=== PATIENT | male | born 1975 | race Asian ===

== ENCOUNTER 2019-03-01 00:34 | Emergency (ER) | payer OTHER ==
--- NOTE | 2019-03-01 02:05 | PDOC ---
History of Present Illness - General Chief Complaint: Nausea Stated Complaint: ELEVATED BLOOD HEAD PAIN Time Seen by Provider: 03/01/19 01:59 - History of Present Illness Initial Comments: 03/01/19 02:04 43 yo M with h/o GERD who p/w epigastria pain. Patient reports 2 days of severe , intermittent epiagstric burning, radiating to throat. States that he experienced sharp, burning, epigastria pain this evening following PO ingestion of "Halaal." Endorses 1 episode of NBNB vomiting (02/27/19). Pain not improved with Omeprazole. Pain non positional, non pleuritic, non radiating. Patient denies DOVER, vision change, palpitations, cough, wheezing, orthopena, PND , leg swelling/pain, F,C, CP, SOB, urinary complaints, hematuria, BPR, diarrhea , constipation, lightheadedness, weakness, sensory changes. PMHx: as noted above Surgical: Denies h/o abdominal surgery. Patient reports gastritis on endoscopy x 4 years prior. Does not f/w GI ROS: as noted SHx: tobacco use intermittently 11 years. Denies Etoh, IVDA. Allergies: NKDA Past History - Past Medical History Allergies/Adverse Reactions: Allergies Allergy/AdvReac Type Severity Reaction Status Date / Time No Known Allergies Allergy Verified 03/02/16 19:52 Home Medications: Ambulatory Orders Acetaminophen [Tylenol] 650 mg PO Q6H PRN 03/02/16 Ibuprofen [Motrin -] 800 mg PO Q6H #30 tablet 03/02/16 Ranitidine [Zantac -] 150 mg PO BID #30 tablet MDD 2 tab 03/01/19 COPD: No - Immunization History Immunization Up to Date: No - Suicide/Smoking/Psychosocial Hx Smoking History: Current every day smoker Number of Cigarettes Smoked Daily: 2 Information on smoking cessation initiated: No Hx Alcohol Use: No Drug/Substance Use Hx: No Review of Systems - Review of Systems Comments:: 03/01/19 02:04 GENERAL/CONSTITUTIONAL: No fever or chills. No weakness. HEAD, EYES, EARS, NOSE AND THROAT: No change in vision. No ear pain or discharge. No sore throat. CARDIOVASCULAR: No chest pain or shortness of breath RESPIRATORY: No cough, wheezing, or hemoptysis. GASTROINTESTINAL: + Abdominal epigastria pain. +nausea. No vomiting, diarrhea or constipation. GENITOURINARY: No dysuria, frequency, or change in urination. MUSCULOSKELETAL: No joint or muscle swelling or pain. No neck or back pain. SKIN: No rash NEUROLOGIC: No headache, vertigo, loss of consciousness, or change in strength/ sensation. ENDOCRINE: No increased thirst. No abnormal weight change HEMATOLOGIC/LYMPHATIC: No anemia, easy bleeding, or history of blood clots. ALLERGIC *Physical Exam - Vital Signs Last Vital Signs Temp Pulse Resp BP Pulse Ox 98.4 F 92 H 20 143/96 100 03/01/19 00:45 03/01/19 00:45 03/01/19 00:45 03/01/19 00:45 03/01/19 00:45 - Physical Exam Comments: 03/01/19 02:05 GENERAL: Awake, alert, and fully oriented, in no acute distress HEAD: No signs of trauma, normocephalic, atraumatic EYES: PERRLA, EOMI, sclera anicteric, conjunctiva clear ENT: Auricles normal inspection, hearing grossly normal, nares patent, oropharynx clear without exudates. Moist mucosa NECK: Normal ROM, supple, no lymphadenopathy, JVD, or masses LUNGS: No distress, speaks full sentences, clear to auscultation bilaterally HEART: Regular rate and rhythm, normal S1 and S2, no murmurs, rubs or gallops, peripheral pulses normal and equal bilaterally. ABDOMEN: Epigastric ttp. Soft,, NDS, normoactive bowel sounds. No guarding, no rebound. No masses. Neg CVA ttp. EXTREMITIES : Normal inspection, Normal range of motion, no edema. No clubbing or cyanosis. NEUROLOGICAL: Cranial nerves II through XII grossly intact. Normal speech, normal gait, no focal sensorimotor deficits SKIN: Warm, Dry, normal turgor, no rashes or lesions noted ED Treatment Course - LABORATORY CBC & Chemistry Diagram: 03/01/19 02:20 03/01/19 02:20 Medical Decision Making - Medical Decision Making 03/01/19 02:39 43 yo M with h/o GERD who p/w epigastria pain. Vitals wnl, AF, A&Ox3. + Epigastric ttp. Will consider esophagitis, gastritis, PUD, pancreatitis, biliary dz. enteritis, colitis. Will provide analgeisc control, and reassess. ED Course: 03/01/19 04:10 CXR: Unremarkable CBC,CMP: Unremarkable Pt. Pain improved Advised to f/u GI Zantac sent to pharmacy *DC/Admit/Observation/Transfer Diagnosis at time of Disposition: Epigastric pain - Discharge Dispostion Condition at time of disposition: Stable Decision to Admit order: No - Prescriptions Prescriptions: Ranitidine [Zantac -] 150 mg PO BID #30 tablet MDD 2 tab - Referrals Referrals: Breana Álvarez MD [Primary Care Provider] - Briana Jameson MD [Staff Physician] - - Patient Instructions Printed Discharge Instructions: DI for Epigastric Pain Additional Instructions: Please return to the emergency department with any new or worsening symptoms or concerns. 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 Can take Ranitidine twice a day for symptom relief as needed. - Post Discharge Activity
[2019-03-01] MEDS ORDERED: ONDANSETRON 4 MG/2 ML VIAL IVPUSH ONE (02:19)
[2019-03-01] MEDS ORDERED: MAG HYDROX/AL HYDROX/SIMETH -MYLANTA- ORAL SUSPENSION PO ONE (02:19)
[2019-03-01] MEDS ORDERED: SODIUM CHLORIDE 1,000 ML IV STA (02:19)
[2019-03-01] MEDS ORDERED: SUCRALFATE 1 GM/10 ML UNIT DOSE CUPS PO ONE (02:19)
[2019-03-01] MEDS ORDERED: FAMOTIDINE 20 MG/50 ML IVPB 20 MG/50 ML MG IVPB ONE ×2 (02:19→02:32)
[2019-03-01] MEDS ORDERED: ONDANSETRON 4 MG/2 ML VIAL ONE (02:31)
[2019-03-01] MEDS ORDERED: MAG HYDROX/AL HYDROX/SIMETH 30 ML UNIT-DOSE CUP ONE (02:31)
[2019-03-01 02:40] LABS: BASO % 0.3 % (0-2.0); EOS % 0.9 % (0-4.5); HEMATOCRIT 42.7 % (35.4-49); HEMOGLOBIN 14.8 GM/dL (11.7-16.9); LYMPH % 20.8 % (8-40); MCH 31.5 pg (25.7-33.7); MCHC 34.7 g/dl (32.0-35.9); MEAN CELL VOLUME 90.6 fl (80-96); MEAN PLT VOLUME 7.9 fl (7.5-11.1); MONO % 8.7 % (3.8-10.2); NEUT % 69.3 % (42.8-82.8); PLATELET COUNT 228 K/MM3 (134-434); RBC 4.71 M/mm3 (4.00-5.60); RDW 12.6 % (11.9-15.9)
[2019-03-01] MEDS ORDERED: SUCRALFATE 1 GM TABLET (FP) ONE (02:43)
[2019-03-01] MEDS ORDERED: SUCRALFATE 1 GM TABLET (FP) PO ONE (02:43)
[2019-03-01 03:06] LABS: ALBUMIN 4.2 g/dl (3.4-5.0); BILIRUBIN,TOTAL 0.2 mg/dL (0.2-1); BLOOD UREA NITROGEN 15.8 mg/dL (7-18); CALCIUM 8.6 mg/dL (8.5-10.1); CREATININE 0.8 mg/dL (0.55-1.3); TOT PROT 7.4 g/dl (6.4-8.2)
[2019-03-01 03:14] VITALS: BP 143/96; PULSE 92; TEMP 98.4
--- NOTE | 2019-03-01 08:37 | EKG ---
Test Reason : Blood Pressure : / mmHG Vent. Rate : 068 BPM Atrial Rate : 068 BPM P-R Int : 142 ms QRS Dur : 078 ms QT Int : 382 ms P-R-T Axes : 074 052 066 degrees QTc Int : 406 ms SINUS RHYTHM WITH PREMATURE ATRIAL COMPLEXES OTHERWISE NORMAL ECG WHEN COMPARED WITH ECG OF 15-SEP-2006 21:37, PREMATURE ATRIAL COMPLEXES ARE NOW PRESENT Confirmed by MAXX LEON, RACHELLE ([id number]) on 03/01/2019 8:37:48 AM Referred By: Confirmed By:RACHELLE LILLY MD
--- NOTE | 2019-03-01 22:47 | PDOC ---
Documentation entered by Mimi De La Paz SCRIBE, acting as scribe for Sally Toro MD. Sally Toro MD: This documentation has been prepared by the avrindibBrain gongora Lincy, SCRIBE, under my direction and personally reviewed by me in its entirety. I confirm that the documentation accurately reflects all work, treatment, procedures, and medical decision making performed by me. Attending Attestation - Resident Resident Name: Husam Henson - ED Attending Attestation I have performed the following: I have examined & evaluated the patient, The case was reviewed & discussed with the resident, I agree w/resident's findings & plan - HPI HPI: 03/01/19 02:56 The patient is a 43 year old male with a past medical history significant for GERD presents to the emergency department with epigastric pain. The patient presents with 2 days of intermittent, epigastric pain that's sharp and burning in quality, radiating up to the chest. The patient reports the pain presented after eating halal food. The patient reports taking omeprazole, without relief. Denies fever or chills. - Physicial Exam PE: 03/01/19 02:56 GENERAL: Awake, alert and oriented. The patient is in no acute distress. ENT: Ears normal, nares patent, oropharynx clear without exudates. Moist mucous membranes. NECK: Normal range of motion, supple, no nuchal rigidity LUNGS: Breath sounds equal, clear to auscultation bilaterally. No wheezes, and no crackles. HEART: Regular rate and rhythm, normal S1 and S2 without murmur, rub or gallop. ABDOMEN: Soft, nontender, normoactive bowel sounds. No guarding, no rebound. No masses palpable. EXTREMITIES: Normal range of motion, no edema. NEUROLOGICAL: Answering all questions. Cranial nerves II through XII grossly intact. Normal speech. No focal neurological deficits. SKIN: Warm, Dry, normal turgor, no rashes or lesions noted. - Medical Decision Making 03/01/19 22:46 Exam normal; labs normal; cardiac enzyme normal. Meds goven and pt feels better.
== END 2019-03-01 04:25 | disposition home or self-care (01) ==
LOC: JER 00:34
PROC: 3E0337Z Introduction of Electrolytic and Water Balance Substance into Peripheral Vein, Percutaneous Approach (ICD-10-PCS; principal; 2019-03-01)
PROC: 3E033GC Introduction of Other Therapeutic Substance into Peripheral Vein, Percutaneous Approach (ICD-10-PCS; 2019-03-01)
PROC: 3E033GC Introduction of Other Therapeutic Substance into Peripheral Vein, Percutaneous Approach (ICD-10-PCS; 2019-03-01)
DX: K21.9 Gastro-esophageal reflux disease without esophagitis (principal); R10.13 Epigastric pain
CPT/HCPCS: 36415; 71046-TC-FY; 80053; 83690; 85025; 93005; 93010; 96361; 96365; 96375; 99282-25; J7030

== ENCOUNTER 2019-08-06 17:19 | Emergency (ER) | payer OTHER ==
--- NOTE | 2019-08-06 17:25 | PDOC ---
Rapid Medical Evaluation Chief Complaint: Pain, Acute Time Seen by Provider: 08/06/19 17:22 Medical Evaluation: Allergies Allergy/AdvReac Type Severity Reaction Status Date / Time No Known Allergies Allergy Verified 03/02/16 19:52 08/06/19 17:22 I have performed a brief in-person evaluation of this patient. The patient presents with a chief complaint of:abd pain x 3 days, + nausea Pertinent physical exam findings: soft no rebound I have ordered the following: UA The patient will proceed to the ED for further evaluation. Discharge Disposition - Diagnosis Abdominal pain - Discharge Dispostion Condition at time of disposition: Stable - Referrals - Patient Instructions - Post Discharge Activity
[2019-08-06 18:03] LABS: PH,URINE 6.5 (5.0-8.0); URINE APPEARANCE CLEAR; URINE BILIRUBIN NEGATIVE (NEGATIVE); URINE COLOR YELLOW; URINE GLUCOSE (UA) NEGATIVE (NEGATIVE); URINE KETONE NEGATIVE (NEGATIVE); URINE LEUK ESTERASE NEGATIVE (NEGATIVE); URINE NITRITE NEGATIVE (NEGATIVE); URINE PROTEIN NEGATIVE (NEGATIVE); URINE UROBILINOGEN 0.2 mg/dL (0.2-1.0)
--- NOTE | 2019-08-06 18:08 | PDOC ---
History of Present Illness - General Chief Complaint: Pain, Acute Stated Complaint: ABD PAIN Time Seen by Provider: 08/06/19 17:22 - History of Present Illness Initial Comments: 08/06/19 18:00 CHIEF COMPLAINT: abdominal pain HISTORY OF PRESENT ILLNESS: 44 yo M with no PMH presents to ED with abdominal pain x 3 days that he believes has been worsened by cold weather. He states that he has been unable to sleep the past two nights secondary to pain. Denies fever, vomiting, diarrhea. Patient denies any unusual foods or new medications. Last BM 3 hours ago and was normal. Patient denies any pain with urination, hematuria. No recent travel or sick contacts. PAST MEDICAL HISTORY: Denies past medical history FAMILY HISTORY: Denies SOCIAL HISTORY: Quit smoking 4 months ago. 9 pack year smoking history. Denies alcohol, illicit drug use. SURGICAL HISTORY: Denies ALLERGIES: No known drug allergies REVIEW OF SYSTEMS General/Constitutional: Denies fever or chills. Denies weakness, weight change. HEENT: Denies change in vision. Denies ear pain or discharge. Denies sore throat. Cardiovascular: Denies chest pain or shortness of breath. Respiratory: Denies cough, wheezing, or hemoptysis. Gastrointestinal: Nausea, abdominal pain x 3 days. Denies vomiting, diarrhea or constipation. Denies rectal bleeding. Genitourinary: Denies dysuria, frequency, or change in urination. Musculoskeletal: Denies joint or muscle swelling or pain. Denies neck or back pain. Skin and breasts: Denies rash or easy bruising. Neurologic: Denies headache, vertigo, loss of consciousness, or loss of sensation. Psychiatric: Denies depression or anxiety. PHYSICAL EXAM General Appearance: Well-appearing, appropriately dressed. No apparent distress , no intoxication. HEENT: EOMI, PERRLA, normal ENT inspection, normal voice, TMs normal, pharynx normal. No conjunctival pallor. No photophobia, scleral icterus. Neck: Supple. Trachea midline. No tenderness, rigidity, carotid bruit, stridor , lymphadenopathy, or thyromegaly. Respiratory/Chest: Lungs CTAB. No shortness of breath, chest tenderness, respiratory distress, accessory muscle use. No crackles, rales, rhonchi, stridor , wheezing, dullness Cardiovascular: RRR. S1, S2. No JVD, murmur, bradycardia, tachycardia. Vascular Pulses: Dorsalis-Pedis (R): 2+, Dorsalis-Pedis (L): 2+ Gastrointestinal/Abdominal: Mild tenderness to epigastrum and RLQ. Abdomen soft , non-distended. No organomegaly, pulsatile mass, guarding, hernia, hepatomegaly, splenomegaly. Lymphatic: No adenopathy, tenderness. Musculoskeletal/Extremities: Normal inspection. FROM of all extremities, normal capillary refill. Pelvis Stable. No CVA tenderness. No tenderness to extremities, pedal edema, swelling, erythema or deformity. Integumentary: Appropriate color, dry, warm. No cyanosis, erythema, jaundice or rash Neurologic: deputy assessor II-XII intact. Fully oriented, alert. Appropriate mood/affect. Motor strength 5/5. No appreciable EOM palsy, facial droop or sensory deficit. Of breath Past History - Past Medical History Allergies/Adverse Reactions: Allergies Allergy/AdvReac Type Severity Reaction Status Date / Time No Known Allergies Allergy Verified 08/06/19 17:24 Home Medications: Ambulatory Orders NK [No Known Home Medication] 08/06/19 COPD: No - Immunization History Immunization Up to Date: No - Psycho Social/Smoking Cessation Hx Smoking History: Former smoker Have you smoked in the past 12 months: No Number of Cigarettes Smoked Daily: 2 Information on smoking cessation initiated: No Hx Alcohol Use: No Drug/Substance Use Hx: No *Physical Exam - Vital Signs Last Vital Signs Temp Pulse Resp BP Pulse Ox 97.6 F 80 18 133/90 99 08/06/19 17:20 08/06/19 17:20 08/06/19 17:20 08/06/19 17:20 08/06/19 17:20 ED Treatment Course - LABORATORY CBC & Chemistry Diagram: 08/06/19 18:17 08/06/19 18:17 Medical Decision Making - Medical Decision Making 08/06/19 19:27 44 yo M with no PMH presents to ED with abdominal pain, worsened by cold weather -labs -pepcid/protonix/maalox Labs unremarkable. Patient reassessed after administration of meds, states he is feeling much better at this time. Advised patient to take medication as prescribed and follow up with PCP and GI. Advised patient of signs and symptoms for return to ED. Patient verbalized understanding and agrees to plan. Discharge - Discharge Information Problems reviewed: Yes Clinical Impression/Diagnosis: GERD (gastroesophageal reflux disease) Qualifiers: Esophagitis presence: esophagitis presence not specified Qualified Code(s): K21.9 - Gastro-esophageal reflux disease without esophagitis Condition: Stable Disposition: HOME - Admission No - Follow up/Referral Referrals: Breana Álvarez MD [Primary Care Provider] - Briana Jameson MD [Staff Physician] - - Patient Discharge Instructions Patient Printed Discharge Instructions: DI for Gastroesophageal Reflux Disease (GERD) - Post Discharge Activity
[2019-08-06] MEDS ORDERED: MAG HYDROX/AL HYDROX/SIMETH -MYLANTA- ORAL SUSPENSION PO ONE (18:12)
[2019-08-06] MEDS ORDERED: FAMOTIDINE 20 MG/50 ML IVPB 20 MG/50 ML MG IVPB ONE ×2 (18:12→18:22)
[2019-08-06] MEDS ORDERED: PANTOPRAZOLE SODIUM 40 MG VIAL IVPUSH ONE (18:12)
[2019-08-06] MEDS ORDERED: MAG HYDROX/AL HYDROX/SIMETH 30 ML UNIT-DOSE CUP ONE (18:22)
[2019-08-06] MEDS ORDERED: PANTOPRAZOLE SODIUM 40 MG VIAL ONE (18:22)
[2019-08-06 18:33] LABS: BASO % 0.3 % (0-2.0); EOS % 0.6 % (0-4.5); HEMATOCRIT 43.3 % (35.4-49); HEMOGLOBIN 14.8 GM/dL (11.7-16.9); LYMPH % 22.1 % (8-40); MCH 31.1 pg (25.7-33.7); MCHC 34.2 g/dl (32.0-35.9); MEAN CELL VOLUME 90.9 fl (80-96); MEAN PLT VOLUME 8.2 fl (7.5-11.1); MONO % 8.7 % (3.8-10.2); NEUT % 68.3 % (42.8-82.8); PLATELET COUNT 215 K/MM3 (134-434); RBC 4.76 M/mm3 (4.00-5.60); RDW 12.7 % (11.9-15.9); WHITE BLOOD COUNT 6.8 K/mm3 (4.0-10.0)
[2019-08-06 18:44] VITALS: BP 127/78; PULSE 84; TEMP 97.8
[2019-08-06 19:01] LABS: ALBUMIN 4.2 g/dl (3.4-5.0); BILIRUBIN,TOTAL 0.4 mg/dL (0.2-1); BLOOD UREA NITROGEN 14.5 mg/dL (7-18); CALCIUM 9.3 mg/dL (8.5-10.1); CREATININE 0.7 mg/dL (0.55-1.3); POTASSIUM 3.9 mmol/L (3.5-5.1); TOT PROT 7.5 g/dl (6.4-8.2)
== END 2019-08-06 19:44 | disposition home or self-care (01) ==
LOC: JER 17:19
PROC: 3E033GC Introduction of Other Therapeutic Substance into Peripheral Vein, Percutaneous Approach (ICD-10-PCS; principal; 2019-08-06)
PROC: 3E033GC Introduction of Other Therapeutic Substance into Peripheral Vein, Percutaneous Approach (ICD-10-PCS; 2019-08-06)
DX: K21.9 Gastro-esophageal reflux disease without esophagitis (principal); Z87.891 Personal history of nicotine dependence
CPT/HCPCS: 36415; 80053; 81003; 83690; 85025; 99283-25

== ENCOUNTER 2023-09-16 15:26 | Emergency (ER) | payer OTHER ==
[2023-09-16 15:35] VITALS: BP 177/97; PULSE 81; RESP 18; TEMP 98.3; BMI 23.6
[2023-09-16 17:23] LABS: BASO % 0.5 % (0-2.0); EOS % 0.5 % (0-4.5); HEMATOCRIT 43.2 % (35.4-49); HEMOGLOBIN 14.8 GM/dL (11.7-16.9); LYMPH % 18.3 % (8-40); MCH 30.8 pg (25.7-33.7); MCHC 34.4 g/dl (32.0-35.9); MEAN CELL VOLUME 89.7 fl (80-96); MEAN PLT VOLUME 7.7 fl (7.5-11.1); MONO % 8.9 % (3.8-10.2); NEUT % 71.8 % (42.8-82.8); PLATELET COUNT 252 10^3/uL (134-434); RBC 4.82 M/mm3 (4.00-5.60); WHITE BLOOD COUNT 7.5 K/mm3 (4.0-10.0)
[2023-09-16 17:44] LABS: POTASSIUM 4.2 mmol/L (3.5-5.1)
[2023-09-16 17:46] LABS: BLOOD UREA NITROGEN 12.7 mg/dL (7-18); CALCIUM 9.3 mg/dL (8.5-10.1)
[2023-09-16 17:47] LABS: ALBUMIN 4.4 g/dl (3.4-5.0)
[2023-09-16 17:50] LABS: CREATININE 0.8 mg/dL (0.55-1.3)
[2023-09-16 17:51] LABS: BILIRUBIN,TOTAL 0.4 mg/dL (0.2-1); TOT PROT 7.7 g/dl (6.4-8.2)
== END 2023-09-16 21:23 | disposition home or self-care (01) ==
LOC: JER 15:26
DX: K40.90 Unilateral inguinal hernia, without obstruction or gangrene, not specified as recurrent (principal); R10.31 Right lower quadrant pain
CPT/HCPCS: 36415; 74177-TC; 80053; 83605; 85025; 93005; 93010; 99285-25; Q9967

== ENCOUNTER 2023-11-04 05:18 | Day surgery (SDC) | payer OTHER ==
[2023-10-24 13:50] VITALS: BMI 23.6
[2023-11-04] MEDS ORDERED: BUPIVACAINE HCL/PF 0.25% (2.5MG/ML) 10 ML VIAL ONE (10:49)
[2023-11-04] MEDS ORDERED: PROPOFOL 20 ML ONE (11:01)
[2023-11-04] MEDS ORDERED: MIDAZOLAM HCL 2 MG/2 ML SINGLE DOSE VIAL ONE (11:01)
[2023-11-04] MEDS ORDERED: ROCURONIUM BROMIDE 50 MG/5 ML SYRINGE ONE (11:01)
[2023-11-04] MEDS ORDERED: FENTANYL CITRATE/PF 50 MCG/ML VIAL ONE ×5 (11:01→14:54)
[2023-11-04] MEDS ORDERED: ceFAZolin SODIUM 1 GM VIAL ONE (11:02)
[2023-11-04] MEDS ORDERED: LIDOCAINE HCL/PF 2% SDV 5ML VIAL ONE (11:02)
[2023-11-04] MEDS ORDERED: SODIUM CHLORIDE 0.9% P/F 10 ML VIAL IJ ONE (11:02)
[2023-11-04] MEDS: ceFAZolin SODIUM 1 GM VIAL IVPB ONE (11:18)
[2023-11-04] MEDS: BUPIVACAINE HCL/PF 0.25% (2.5MG/ML) 10 ML VIAL IJ ONE ×2 (11:19→11:46)
[2023-11-04] MEDS ORDERED: DEXAMETHASONE SOD PHOSPHATE 4 MG/1 ML VIAL ONE (11:34)
[2023-11-04] MEDS ORDERED: ONDANSETRON 4 MG/2 ML VIAL ONE (11:34)
[2023-11-04] MEDS ORDERED: METOCLOPRAMIDE HCL INJECTION 10 MG/2 ML VIAL ONE (11:34)
[2023-11-04] MEDS ORDERED: KETOROLAC TROMETHAMINE 30 MG/1 ML VIAL ONE (13:11)
[2023-11-04] MEDS ORDERED: SUGAMMADEX SODIUM 200 MG/2 ML VIAL ONE (13:12)
[2023-11-04] MEDS ORDERED: ONDANSETRON 4 MG/2 ML VIAL IVPUSH PRN (13:29)
[2023-11-04] MEDS ORDERED: PROMETHAZINE HCL 25 MG/1 ML VIAL IVPB PRN (13:29)
[2023-11-04] MEDS ORDERED: LACTATED RINGERS SOLUTION 1,000 ML IV SCH (13:30)
[2023-11-04] MEDS ORDERED: oxyCODONE HCL 5 MG TABLET ONE (16:15)
[2023-11-04] MEDS: oxyCODONE HCL 5 MG TABLET PO PRN (16:15)
[2023-11-04 17:49] VITALS: PULSE 62; RESP 18
[2023-11-04 17:57] VITALS: BP 134/75; TEMP 97.7
== END 2023-11-04 16:55 | disposition home or self-care (01) ==
LOC: JASU-SURG 05:18
PROVIDERS: ATTEND Surgery
PROC: 0DQV4ZZ Repair Mesentery, Percutaneous Endoscopic Approach (ICD-10-PCS; principal; 2023-11-04 10:00)
DX: K40.90 Unilateral inguinal hernia, without obstruction or gangrene, not specified as recurrent (principal)
CPT/HCPCS: 49650; S2900; 82962; 94760; C1781